=== PATIENT | male | born 1980 | race Caucasian/White ===

== ENCOUNTER 2023-11-09 16:33 | Emergency (ER) | payer OTHER ==
[2023-11-09] MEDS ORDERED: HYDROmorphone 0.5 MG/0.5 ML Syringe IM ONE (17:57)
[2023-11-09] MEDS ORDERED: Naloxone 0.4 MG/ML SDV IVPUSH PRN (18:02)
[2023-11-09] MEDS: HYDROmorphone 0.5 MG/0.5 ML Syringe IVPUSH ONE (18:03)
[2023-11-09] MEDS: HYDROmorphone 1 MG/ML Syringe IVPUSH ONE (18:38)
[2023-11-09] MEDS ORDERED: Propofol 200 MG/20 ML SDV ONE ×2 (18:59)
[2023-11-09] MEDS ORDERED: Sodium Chloride 0.9% 10 ML Syringe FLUSH PRN (19:24)
[2023-11-09] MEDS ORDERED: Lidocaine 1% 5 ML VIAL INJECT ONE (19:59)
[2023-11-09] MEDS ORDERED: Bacitracin Oint 1 GM U/D Packet TOP ONE (19:59)
== END 2023-11-09 20:26 | disposition home or self-care (01) ==
LOC: JP.ED 16:33
DX: S43.014A Anterior dislocation of right humerus, initial encounter (principal); I10 Essential (primary) hypertension; K21.9 Gastro-esophageal reflux disease without esophagitis; Z87.891 Personal history of nicotine dependence; Z79.899 Other long term (current) drug therapy; V93.39XA Fall on board unspecified watercraft, initial encounter
CPT/HCPCS: 23650; 73030; 96374; 96376; 99283; J1170; J2704